=== PATIENT | male | born 1970 | race Caucasian/White ===

== ENCOUNTER 2024-10-16 12:05 | Observation (INO) ==
[2024-10-16 12:33] LABS: Basophils % (auto) 1.3 %; Eosinophils # (auto) 0.43 K/uL (0.00-0.50); Eosinophils % (auto) 5.6 %; Hematocrit (blood only) 51.6 % (42.0-52.0); Hemoglobin 17.8 g/dl (14.0-18.0); Immature Granulocytes # (auto) 0.02 K/uL (0.01-0.20); Immature Granulocytes % (auto) 0.3 %; Lymphocytes # (auto) 3.03 K/uL (1.20-3.40); Lymphocytes % (auto) 39.6 %; Mean Corpuscular Hemoglobin 28.8 pg (25.0-34.0); Mean Corpuscular Hgb Conc 34.5 g/dL (32.0-36.0); Mean Corpuscular Volume 83.4 fL (80.0-100.0); Mean Platelet Volume 9.7 fL (9.4-12.4); Monocytes # (auto) 0.73 K/uL (0.11-0.59); Monocytes % (auto) 9.5 %; Neutrophils # (auto) 3.34 K/uL (1.40-6.50); Neutrophils % (auto) 43.7 %; Platelet Count 236 K/uL (130-400); RDW Coefficient of Variation 12.8 % (11.5-14.5); Red Blood Count 6.19 M/uL (4.70-6.10); White Blood Count 7.65 K/ul (4.8-10.8)
[2024-10-16 12:50] LABS: Alanine Aminotransferase 49 U/L (7-52); Albumin Globulin Ratio 1.8 (0.9-2); Alkaline Phosphatase 57 U/L (34-104); Anion Gap 6 (3-11); Aspartate Aminotransferase 29 U/L (13-39); BUN Creatinine Ratio 13.8 (10-20); Bilirubin,Total 0.8 mg/dl (0.2-1.0); Blood Urea Nitrogen 15 mg/dl (6-23); Calcium 9.8 mg/dl (8.6-10.3); Carbon Dioxide 28 mmol/L (21-32); Chloride 104 mmol/L (98-107); Creatinine Clr Calc Pharmacy 99.9 ml/min; Globulin 2.8 gm/dl (2.5-4.0); Glucose 106 mg/dl (70-99(Fasting)); Potassium 4.2 mmol/L (3.5-5.1); Sodium 138 mmol/L (136-145); Total Protein 7.8 gm/dl (6.0-8.3)
[2024-10-16 12:56] LABS: Troponin I High Sensitivity < 2.3 pg/ml (0-20)
[2024-10-16 13:01] LABS: Partial Thromboplastin Time 26 Seconds (21-31); Prothrombin Time 10.9 Seconds (9.0-12.0)
[2024-10-16 13:03] LABS: Influenza A virus by PCR Negative (Neg); Influenza B virus by PCR Negative (Neg); RSV by PCR Negative (Neg); SARS CoV2 RNA(COVID-19) Ceph NEGATIVE (Negative)
--- NOTE | 2024-10-16 13:33 | XRay Report ---
XR chest 1V not portable CLINICAL HISTORY: Chest pain, nonspecific COMPARISON STUDY: None FINDINGS: Heart size and pulmonary vasculature are normal. There is a pulmonary granuloma lateral rig ht lung base. No consolidation or pleural effusion. No pneumothorax. IMPRESSION: No acute findings. ACT 112: Negative or not required by law. Electronically signed by: Joe Madden M.D. 10/16/2024 1:32 PM
[2024-10-16] MEDS: ASPIRIN 81 MG CHEW PO STA (14:53)
--- NOTE | 2024-10-16 15:01 | History & Physical Report ---
Date of Service October 16, 2024 Assessment & Plan (1) Exertional dyspnea: (2) Family history of cardiac arrest: Plan This is a 54 y/o male with no significant medical history who presented to the ED today with dyspnea on exertion since yesterday. Work-up in the ED revealed a negative troponin at <2.3. EKG personally reviewed and without evidence of ischemia. Chest x-ray personally reviewed and without acute disease. Due to his family history and concerning symptoms, pt was referred for observation and further work-up. #Exertional dyspnea #Family history of cardiac disease - Observe on med telemetry - Trend troponin, repeat EKG if develops recurrent symptoms/chest pain - ECHO - Pending results of above work-up will evaluate need for inpatient cardiology evaluation vs. outpatient work-up - Lipid panel and A1c in the AM - Chest xray shows pulmonary granuloma - will check CTA chest to r/o PE and better evaluate granuloma Pt seen and reviewed with collaborating physician, Dr. Hamilton. Plan of care discussed and as above. Code status: full code DVT prophylaxis: SCDs I spent a total of 62 minutes coordinating, documenting, and providing care for this patient excluding time spend in the performance of separately billed services or time spent by another provider/QHP. Ganesh Johnson PA-C History of Present Illness Chief Complaint: exertional dyspnea Primary Care Provider: NO PCP This is a 54 y/o male with no significant medical history who presented to the ED today with dyspnea on exertion since yesterday. He reports he was he was working in the yard yesterday and became more short of breath than he would usually expect for his level of exertion and became very tired. He tried stopping to rest, and the breathing improved somewhat so he attempted to do work again but the same symptoms happened so he stopped. He tried resting overnight to see if symptoms would resolve but reports that he felt off again today, specifically still with persistent fatigue so he came to the ED for evaluation. He notes a family history of cardiac disease with his mother having HOCM and his father having a cardiac arrest a few years ago. He denies prior personal history of cardiac disease. He does have a history of vertigo that started a year ago - has this off and on since started but his current symptoms don't quite feel the same as when he has vertigo. He denies chest pain, nausea, vomiting, MÁRQUEZ, cold symptoms, fevers, chills, abd pain, diarrhea, constipation. Allergies Allergy/AdvReac Type Severity Reaction Status Date / Time Penicillins Allergy Unknown hives Unverified 10/16/24 15:03 epoxy resin Allergy Swelling Verified 10/16/24 15:03 of the Eye Home Medications Medication Instructions Recorded Confirmed Type No Known Home Medications 10/16/24 10/16/24 History Past Med/Surg History Problem List (Updated 10/16/24 @ 18:51 by Jazmyn Johnson PA-C) Family history of cardiac arrest Exertional dyspnea (Acute) Medical History Vertigo AC joint dislocation Surgical History No significant past surgical history Family History Mother HOCM (hypertrophic obstructive cardiomyopathy) Father Cardiac arrest Diabetes Social History Smoking Status: Never smoker Second Hand Exposure: No; Do You Dip or Chew Tobacco: No; Hx Alcohol Use: Yes Alcohol type: beer and hard liquor Hx Substance Use: No Beliefs That Will Affect Care: None marital status: Current Living Situation: Family current occupational status: employed Feels Safe at Home: Yes Safety Concerns: Feels Safe At This Time Assistive Devices: None, Contacts, Glasses and Other Review of Systems Review of Systems: All systems reviewed & are unremarkable except as noted in Subjective Physical Exam Physical Exam: Please see physician note for details of the physical exam Results & Data Results & Data Vital Signs (Past 12 Hours) Vital Signs Temp Pulse Pulse Resp BP BP Pulse Ox 10/16/24 14:27 95 10/16/24 14:27 95 10/16/24 14:25 70 10/16/24 14:00 71 18 148/95 H 95 10/16/24 14:00 95 10/16/24 12:08 36.7 C 88 18 177/106 H 95 O2 Del Method 10/16/24 14:27 10/16/24 14:27 Room Air 10/16/24 14:25 10/16/24 14:00 Room Air 10/16/24 14:00 Room Air 10/16/24 12:08 Room Air Laboratory Results Lab Results 10/16/24 Range/Units 12:13 WBC 7.65 (4.8-10.8) K/ul RBC 6.19 H (4.70-6.10) M/uL Hgb 17.8 (14.0-18.0) g/dl Hct 51.6 (42.0-52.0) % MCV 83.4 (80.0-100.0) fL MCH 28.8 (25.0-34.0) pg MCHC 34.5 (32.0-36.0) g/dL RDW Std Deviation 38.0 (36.4-46.3) fL RDW Coeff of Vargas 12.8 (11.5-14.5) % Plt Count 236 (130-400) K/uL MPV 9.7 (9.4-12.4) fL Immature Gran % (Auto) 0.3 % Neut % (Auto) 43.7 % Lymph % (Auto) 39.6 % [place] % (Auto) 9.5 % Eos % (Auto) 5.6 % Baso % (Auto) 1.3 % Neut # (Auto) 3.34 (1.40-6.50) K/uL Lymph # (Auto) 3.03 (1.20-3.40) K/uL [place] # (Auto) 0.73 H (0.11-0.59) K/uL Eos # (Auto) 0.43 (0.00-0.50) K/uL Baso # (Auto) 0.10 (0.00-0.20) K/uL Immature Gran # (Auto) 0.02 (0.01-0.20) K/uL PT 10.9 (9.0-12.0) Seconds INR 1.0 (0.9-1.1) APTT 26 (21-31) Seconds PTT Ratio 1.0 Sodium 138 (136-145) mmol/L Potassium 4.2 (3.5-5.1) mmol/L Chloride 104 (98-107) mmol/L Carbon Dioxide 28 (21-32) mmol/L Anion Gap 6 (3-11) BUN 15 (6-23) mg/dl Creatinine 1.09 (0.6-1.4) mg/dl Est Cr Clr Drug Dosing 99.9 ml/min eGFR 80.65 BUN/Creatinine Ratio 13.8 (10-20) Glucose 106 H (70-99(Fasting)) mg/dl Calcium 9.8 (8.6-10.3) mg/dl Total Bilirubin 0.8 (0.2-1.0) mg/dl AST 29 (13-39) U/L ALT 49 (7-52) U/L Alkaline Phosphatase 57 (34-104) U/L Troponin I High Sens < 2.3 (0-20) pg/ml Total Protein 7.8 (6.0-8.3) gm/dl Albumin 5.0 (3.4-5.0) gm/dl Globulin 2.8 (2.5-4.0) gm/dl Albumin/Globulin Ratio 1.8 (0.9-2) SARS-CoV-2 (PCR) NEGATIVE (Negative) Influenza Type A (PCR) Negative (Neg) Influenza Type B (PCR) Negative (Neg) RSV (RT-PCR) Negative (Neg) Diagnostic Findings Chest X-Ray 10/16/24 12:11 XR chest 1V not portable CLINICAL HISTORY: Chest pain, nonspecific COMPARISON STUDY: None FINDINGS: Heart size and pulmonary vasculature are normal. There is a pulmonary granuloma lateral right lung base. No consolidation or pleural effusion. No pneumothorax. IMPRESSION: No acute findings. ACT 112: Negative or not required by law. Electronically signed by: Joe Madden M.D. 10/16/2024 1:32 PM Medications Administered Discontinued Medications Aspirin (Aspirin 81 Mg Chew) 324 mg PO NOW STA Stop: 10/16/24 14:31 Last Admin: 10/16/24 14:53 Dose: 324 mg Documented By: [facility] Supervising Physician Co-Signing Physician Notes Presents with complaint of exertional dyspnea with working in the yard yesterday which is unusual for him and feeling fatigue Denied chest pain ROS noted for vertigo, mild couhg Reports family history of HOCM in mother and cardiac arrest in father General: Not in resp distress, obese Eyes: PERRL, conjunctivae normal, not pale, anicteric sclerae, EOM intact bilaterally ENMT: External ear and nose normal, oropharynx normal Respiratory: Normal respiratory effort, no respiratory distress, lungs clear to auscultation, no crackles and no wheezes Cardiovascular: RRR S1 S2 Gastrointestinal (Abdomen): Abdomen is not distended, soft, non-tender to palpation, no guarding, no palpable hepatosplenomegaly, normal bowel sounds Musculoskeletal: No pedal edema Neurologic: Alert and oriented x 3, No focal weakness, sensation grossly intact Psychiatric: Euthymic affect Labs drawn unremarkable. Troponin is normal. Chest x-ray did not show any acute abnormality but noted pulmonary granuloma Considering symptoms, family history, Overnight for telemetry monitoring, trending troponin and getting an echocardiogram. If abnormalities noted then consult cardiology Get CT to rule out PE and better assess CXR findings Other plans as detailed by Halie Johnson PA-C I spent a total of 30 minutes coordinating, documenting and providing care for this patient excluding time spent in performance of separately billed services
--- NOTE | 2024-10-16 16:16 | Emergency Department Note ---
History of Present Illness General Chief Complaint: Shortness of Breath/Dyspnea Stated Complaint: SOB, FATIGUE Time Seen by Provider: 10/16/24 13:58 History of Present Illness Provider Complaint: shortness of breath Onset (ago): day(s) (2) Current Pain Intensity: 0 Exacerbated By: + exertion (While doing yard work) Associated symptoms: no chest pain, no fever, no cough, no wheezing, no sputum production, no orthopnea, no paresthesias, no hemoptysis, no nausea/vomiting, no abdominal pain or no rash Home Medications Medication Instructions Recorded Confirmed Type No Known Home Medications 10/16/24 10/16/24 History Allergies Allergy/AdvReac Type Severity Reaction Status Date / Time Penicillins Allergy Unknown hives Unverified 10/16/24 15:03 epoxy resin Allergy Swelling Verified 10/16/24 15:03 of the Eye Past Med/Surg History Problem List (Updated 10/16/24 @ 16:24 by Walker Enriquez MD) Exertional dyspnea (Acute) Medical History Vertigo AC joint dislocation Surgical History No significant past surgical history Family History Mother HOCM (hypertrophic obstructive cardiomyopathy) Father Cardiac arrest Diabetes Social History Smoking Status: Never smoker Hx Alcohol Use: Yes marital status: Current Living Situation: Spouse and Family current occupational status: employed Feels Safe at Home: Yes Physical Exam 2 Vital Signs: Vital Signs - 24 hr 10/16/24 12:08 10/16/24 14:00 10/16/24 14:00 Temperature 36.7 C Temperature Source Temporal Artery Sc an Pulse Rate 88 Pulse Rate [Apical ] 71 Pulse Rhythm [Apic al] Pulse Strength [Ap ical] Respiratory Rate 18 18 Respiratory Effort / Characteristics Non-Labored Non-Labored Sponta neous Respiratory Depth Normal Normal Respiratory Patter n Regular Regular Blood Pressure 177/106 H Blood Pressure [Le ft Arm] 148/95 H Blood Pressure Becca n 129 Blood Pressure Becca n [Left Arm] 112 Blood Pressure Pos ition [Left Arm] Pulse Oximetry 95 95 95 Oxygen Delivery Me thod Room Air Room Air Room Air Sepsis Recent Feve r Within 48 Hours No Sepsis New/Unexpla ined Change in Men margi Status N/A Sepsis Action Take n by Nursing No Action Required 10/16/24 14:00 10/16/24 14:25 10/16/24 14:27 Temperature Temperature Source Pulse Rate 70 Pulse Rate [Apical ] Pulse Rhythm [Apic al] Pulse Strength [Ap ical] Respiratory Rate Respiratory Effort / Characteristics Spontaneous Respiratory Depth Normal Respiratory Patter n Regular Blood Pressure Blood Pressure [Le ft Arm] Blood Pressure Becca n Blood Pressure Becca n [Left Arm] Blood Pressure Pos ition [Left Arm] Pulse Oximetry 95 Oxygen Delivery Me thod Room Air Sepsis Recent Feve r Within 48 Hours Sepsis New/Unexpla ined Change in Men margi Status Sepsis Action Take n by Nursing 10/16/24 14:27 10/16/24 15:58 Temperature Temperature Source Pulse Rate Pulse Rate [Apical ] 68 Pulse Rhythm [Apic al] Regular Pulse Strength [Ap ical] Normal Respiratory Rate 19 Respiratory Effort / Characteristics Non-Labored Respiratory Depth Normal Respiratory Patter n Regular Blood Pressure Blood Pressure [Le ft Arm] 135/94 Blood Pressure Becca n Blood Pressure Becca n [Left Arm] 107 Blood Pressure Pos ition [Left Arm] Lying Pulse Oximetry 95 95 Oxygen Delivery Me thod Room Air Sepsis Recent Feve r Within 48 Hours Sepsis New/Unexpla ined Change in Men margi Status Sepsis Action Take n by Nursing Physical Exam: Physical Exam GENERAL: oriented to person, place, and time. appears well-developed and well- nourished. HENT: Exam performed. - Head: Normocephalic and atraumatic. EYES: Conjunctivae and EOM are normal. Right eye exhibits no discharge. Left eye exhibits no discharge. No scleral icterus. NECK: Normal range of motion. Neck supple. No JVD present. CV: Normal rate, regular rhythm, normal heart sounds and intact distal pulses. There is no peripheral edema. Palpable radial pulses bue. PULM/CHEST: Effort normal and breath sounds normal. No respiratory distress. No stridor. no wheezes. no rales. ABD: The abdomen is soft. There is no tenderness. NEURO: Motor and sensation grossly intact. SKIN: Skin is warm and dry. He is not diaphoretic. PSYCH: normal mood and affect. Behavior is normal. Judgment and thought content normal. Course Course 1358: The patient was evaluated in room A12. A complete history and physical exam was performed Administered Medications Discontinued Medications Aspirin (Aspirin 81 Mg Chew) 324 mg PO NOW STA Stop: 10/16/24 14:31 Last Admin: 10/16/24 14:53 Dose: 324 mg Documented By: [facility] Medical Decision Making Laboratory Data Attestation: I reviewed the patient's lab results. 10/16/24 12:13 10/16/24 12:13 Lab Results 10/16/24 Range/Units 12:13 WBC 7.65 (4.8-10.8) K/ul RBC 6.19 H (4.70-6.10) M/uL Hgb 17.8 (14.0-18.0) g/dl Hct 51.6 (42.0-52.0) % MCV 83.4 (80.0-100.0) fL MCH 28.8 (25.0-34.0) pg MCHC 34.5 (32.0-36.0) g/dL RDW Std Deviation 38.0 (36.4-46.3) fL RDW Coeff of Vargas 12.8 (11.5-14.5) % Plt Count 236 (130-400) K/uL MPV 9.7 (9.4-12.4) fL Immature Gran % (Auto) 0.3 % Neut % (Auto) 43.7 % Lymph % (Auto) 39.6 % [place] % (Auto) 9.5 % Eos % (Auto) 5.6 % Baso % (Auto) 1.3 % Neut # (Auto) 3.34 (1.40-6.50) K/uL Lymph # (Auto) 3.03 (1.20-3.40) K/uL [place] # (Auto) 0.73 H (0.11-0.59) K/uL Eos # (Auto) 0.43 (0.00-0.50) K/uL Baso # (Auto) 0.10 (0.00-0.20) K/uL Immature Gran # (Auto) 0.02 (0.01-0.20) K/uL PT 10.9 (9.0-12.0) Seconds INR 1.0 (0.9-1.1) APTT 26 (21-31) Seconds PTT Ratio 1.0 Sodium 138 (136-145) mmol/L Potassium 4.2 (3.5-5.1) mmol/L Chloride 104 (98-107) mmol/L Carbon Dioxide 28 (21-32) mmol/L Anion Gap 6 (3-11) BUN 15 (6-23) mg/dl Creatinine 1.09 (0.6-1.4) mg/dl Est Cr Clr Drug Dosing 99.9 ml/min eGFR 80.65 BUN/Creatinine Ratio 13.8 (10-20) Glucose 106 H (70-99(Fasting)) mg/dl Calcium 9.8 (8.6-10.3) mg/dl Total Bilirubin 0.8 (0.2-1.0) mg/dl AST 29 (13-39) U/L ALT 49 (7-52) U/L Alkaline Phosphatase 57 (34-104) U/L Troponin I High Sens < 2.3 (0-20) pg/ml Total Protein 7.8 (6.0-8.3) gm/dl Albumin 5.0 (3.4-5.0) gm/dl Globulin 2.8 (2.5-4.0) gm/dl Albumin/Globulin Ratio 1.8 (0.9-2) SARS-CoV-2 (PCR) NEGATIVE (Negative) Influenza Type A (PCR) Negative (Neg) Influenza Type B (PCR) Negative (Neg) RSV (RT-PCR) Negative (Neg) Imaging Data Attestation: I personally reviewed and interpreted this imaging study as follows: My Impression: Chest x-ray negative. Airway clear. No pneumothorax. No consolidation. No cardiomegaly or cephalization.. No free air under the diaphragm. No fractures of the skeletal structures. Radiologist's Impression: Chest X-Ray 10/16/24 12:11 XR chest 1V not portable CLINICAL HISTORY: Chest pain, nonspecific COMPARISON STUDY: None FINDINGS: Heart size and pulmonary vasculature are normal. There is a pulmonary granuloma lateral right lung base. No consolidation or pleural effusion. No pneumothorax. IMPRESSION: No acute findings. ACT 112: Negative or not required by law. Electronically signed by: Joe Madden M.D. 10/16/2024 1:32 PM ECG Data Attestation: I personally reviewed and interpreted this ECG as follows: Interpretation: Sinus rhythm with a rate of 83. OK QRS and QTc intervals within normal limits. No ST elevation or ST depression. MDM Narrative Cardiac monitoring: An order was placed for continuous cardiac monitoring. The monitor shows a rate of 80 with sinus rhythm interpreted by me Patient was seen during a time of extreme volume and extreme acuity. Nursing triage protocols were initiated labs and imaging was conducted by protocol in the triage area. Labs and imaging are unremarkable. Given the patient's history of exertional dyspnea, family history of HOCM, obesity we will admit the patient for rule out ACS. Impression & Plan Exertional dyspnea Discharge Plan Visit Data Chief Complaint: Shortness of Breath/Dyspnea Stated Complaint: SOB, FATIGUE ED Provider: Walker Enriquez Discharge Problem: Exertional dyspnea Patient Disposition: Being Evaluated by Hospitalist Condition: Good Discharge Instructions Interventions: ED Discharge Assessment Last Done: 10/16/24 16:07 Forms Stand Alone Forms: [employer] Prescriptions Prescriptions: No Action No Known Home Medications Referrals Referrals: PCP,NO [Primary Care Provider] -
[2024-10-16] MEDS ORDERED: ACETAMINOPHEN 325 MG TAB PO PRN (16:28)
[2024-10-16] MEDS ORDERED: NITROGLYCERIN SL 0.4 MG/TAB TAB SL PRN (16:28)
[2024-10-16] MEDS: OPTIRAY 320 125ml IV ONE (22:50)
--- NOTE | 2024-10-17 01:58 | CT Scan Report ---
Exam(s): CTA CHEST IV Amt: 118 ml optiray 320 EXAM: CT Angiography Chest With Intravenous Contrast CLINICAL HISTORY: Reason for exam: r/o PE, asses pulm granuloma seen on CXR. TECHNIQUE: Axial computed tomographic angiography images of the chest with intravenous contrast. CTDI is 28.14 mGy and DLP is 873.63 mGy-cm. Automated exposure control was utilized for the study. A dose lowering technique was utilized adhering to the principles of ALARA. MIP reconstructed images were created and reviewed. COMPARISON: No relevant prior studies available. FINDINGS: Pulmonary arteries: No pulmonary embolism is seen. Aorta: No thoracic aortic aneurysm or dissection. Lungs: There are calcifications noted in the right lung. There are some mild dependent atelectasis. Pleural space: No significant effusion. No pneumothorax. Heart: The heart is top normal in size.. Bones/joints: There are degenerative changes in the spine.. Soft tissues: Unremarkable. Lymph nodes: There are calcified lymph nodes.. IMPRESSION: No pulmonary embolism is seen. There is evidence for old granulomatous disease. Electronically signed by: Slick Wolf MD 10/17/24 01:58 AM
[2024-10-17 06:43] LABS: Chol HDL Ratio 6.6 (0-5)
[2024-10-17 07:24] VITALS: O2SAT 94
[2024-10-17 07:24] LABS: Estimated Average Glucose 108 mg/dl; Hemoglobin A1C 5.4 % (4.5-5.6)
--- NOTE | 2024-10-17 11:00 | Hospitalist Progress Note ---
Date of Service October 17, 2024 Assessment & Plan (1) Exertional dyspnea: (2) Family history of cardiac arrest: Plan This is a 54 y/o male with no significant medical history who presented to the ED today with dyspnea on exertion since yesterday. Work-up in the ED revealed a negative troponin at <2.3. EKG personally reviewed and without evidence of ischemia. Chest x-ray personally reviewed and without acute disease. Due to his family history and concerning symptoms, pt was referred for observation and further work-up. #Exertional dyspnea #Family history of cardiac disease Remains free from any symptoms at rest and does not have any chest pain, p alpitation or shortness of breath EKG and serial troponins are unremarkable for any ACS - ECHO- pending results - Lipid panel and A1c in the AM- triglyceride mildly elevated at 174 and cholesterol elevated to 224 with HDL 34 and hemoglobin A1c is 5.4 - Chest xray shows pulmonary granuloma - will check CTA chest to r/o PE and better evaluate granuloma -CTA did show old granulomatous disease likely the cause for exertional dyspnea echo of the heart showed; LV systolic function is normal with EF 55 to 60%, there is mild concentric LVH, LV wall motion is normal, LV relaxation is normal and no significant valvular pathology Discussed with the patient in detail about the findings and he wanted to go home He will be scheduled with a new [facility] patient PCP and also stress test and an outpatient Pt seen and reviewed with collaborating physician, Dr. Hamilton. Plan of care discussed and as above. Code status: full code DVT prophylaxis: SCDs Admission and Anticipated Discharge Date Admission Date: October 16, 2024 Subjective 10/17/2024 The patient was seen and examined in medical telemetry unit He was admitted with exertional dyspnea without any chest pain or palpitation Has been free from any symptoms since admission Denies any history of asthma and/or COPD Wants to go home if no further testing is needed Review of Systems Review of Systems: All systems reviewed and are unremarkable except as noted below Physical Exam Constitutional: well developed, well nourished and + obese; not ill appearing Eyes: PERRL, conjunctivae normal, anicteric sclerae ENMT: external ear and nose normal, oropharynx normal Neck: trachea midline, no thyromegaly Respiratory: no respiratory distress Auscultation: lungs clear to auscultation bilaterally Cardiovascular: Rate/Rhythm: regular rate and regular rhythm; not tachycardic Heart Sounds: normal S1 and normal S2; no murmur Extremities: no edema Gastrointestinal (Abdomen): Inspection/Auscultation: normal bowel sounds; abdomen not distended Percussion/Palpation: abdomen soft; abdomen nontender Musculoskeletal: No acute arthritis involving any of the joint Neurologic: normal touch/pain/proprioception and moves all extremities; no focal motor deficits Lymphatic: no cervical or axillary lymphadenopathy Results & Data Results & Data Vital Signs (Past 12 Hours) Vital Signs Temp Pulse Pulse Resp BP Pulse Ox O2 Del Method 10/17/24 07:41 58 L 10/17/24 07:22 36.4 C L 64 14 142/89 H 94 Room Air 10/17/24 03:48 36.3 C L 64 20 137/88 97 Room Air 10/17/24 00:24 36.6 C 78 20 154/96 H 95 Room Air Laboratory Results Short CBC 10/16/24 Range/Units 12:13 WBC 7.65 (4.8-10.8) K/ul Hgb 17.8 (14.0-18.0) g/dl Hct 51.6 (42.0-52.0) % Plt Count 236 (130-400) K/uL BMP 10/16/24 12:13 Sodium 138 Potassium 4.2 Chloride 104 Carbon Dioxide 28 BUN 15 Creatinine 1.09 Glucose 106 H Calcium 9.8 Liver Function 10/16/24 Range/Units 12:13 Total Bilirubin 0.8 (0.2-1.0) mg/dl AST 29 (13-39) U/L ALT 49 (7-52) U/L Alkaline Phosphatase 57 (34-104) U/L Albumin 5.0 (3.4-5.0) gm/dl Medications Administered Current Inpatient Medications Acetaminophen (Acetaminophen 325 Mg Tab) 650 mg PO Q4H PRN PRN Reason: Pain or Fever Stop: 11/15/24 16:27 Nitroglycerin (Nitroglycerin Sl 0.4 Mg/Tab Tab) 0.4 mg SL Q5M PRN PRN Reason: Chest Pain Stop: 11/15/24 16:27
[2024-10-17 11:55] VITALS: BP 147/88; PULSE 70; RESP 18; TEMP 97.9
--- NOTE | 2024-10-17 12:34 | Electrocardiogram Report ---
Test Reason : Blood Pressure : */* mmHG Vent. Rate : 83 BPM Atrial Rate : 83 BPM P-R Int : 150 ms QRS Dur : 88 ms QT Int : 362 ms P-R-T Axes : 51 -4 24 degrees QTcB Int : 425 ms Normal sinus rhythm Normal ECG No previous ECGs available Confirmed by Ari Mendoza ([id number]) on 10/17/2024 12:33:46 PM Referred By: Confirmed By: Ari Mendoza
--- NOTE | 2024-10-17 13:13 | Electrocardiogram Report ---
Test Reason : Blood Pressure : */* mmHG Vent. Rate : 61 BPM Atrial Rate : 61 BPM P-R Int : 156 ms QRS Dur : 96 ms QT Int : 410 ms P-R-T Axes : 45 11 20 degrees QTcB Int : 412 ms Normal sinus rhythm Normal ECG When compared with ECG of 16-Oct-2024 12:15, (unconfirmed) No significant change was found Confirmed by Ari Mendoza ([id number]) on 10/17/2024 1:12:57 PM Referred By: REFERRED SELF Confirmed By: Ari Mendoza
--- NOTE | 2024-10-17 15:26 | Discharge Summary ---
Date of Service October 17, 2024 Admission HPI Per Admitting Provider This is a 54 y/o male with no significant medical history who presented to the ED today with dyspnea on exertion since yesterday. He reports he was he was working in the yard yesterday and became more short of breath than he would usually expect for his level of exertion and became very tired. He tried stopping to rest, and the breathing improved somewhat so he attempted to do work again but the same symptoms happened so he stopped. He tried resting overnight to see if symptoms would resolve but reports that he felt off again today, specifically still with persistent fatigue so he came to the ED for evaluation. He notes a family history of cardiac disease with his mother having HOCM and his father having a cardiac arrest a few years ago. He denies prior personal history of cardiac disease. He does have a history of vertigo that started a year ago - has this off and on since started but his current symptoms don't quite feel the same as when he has vertigo. He denies chest pain, nausea, vomiting, MÁRQUEZ, cold s ymptoms, fevers, chills, abd pain, diarrhea, constipation. Admission Exam Per Admitting Provider General: Not in resp distress, obese Eyes: PERRL, conjunctivae normal, not pale, anicteric sclerae, EOM intact bilaterally ENMT: External ear and nose normal, oropharynx normal Respiratory: Normal respiratory effort, no respiratory distress, lungs clear to auscultation, no crackles and no wheezes Cardiovascular: RRR S1 S2 Gastrointestinal (Abdomen): Abdomen is not distended, soft, non-tender to palpation, no guarding, no palpable hepatosplenomegaly, normal bowel sounds Musculoskeletal: No pedal edema Neurologic: Alert and oriented x 3, No focal weakness, sensation grossly intact Psychiatric: Euthymic affect Principal Diagnosis Exertional shortness of breath, no ACS, Discharge Exam Constitutional well developed, well nourished and + obese; not ill appearing Eyes PERRL, conjunctivae normal, anicteric sclerae ENMT external ear and nose normal, oropharynx normal Neck trachea midline, no thyromegaly Respiratory no respiratory distress Auscultation: lungs clear to auscultation bilaterally Cardiovascular Rate/Rhythm: regular rate and regular rhythm; not tachycardic Heart Sounds: normal S1 and normal S2; no murmur Extremities: no edema Gastrointestinal (Abdomen) Inspection/Auscultation: normal bowel sounds; abdomen not distended Percussion/Palpation: abdomen soft; abdomen nontender Neurologic normal touch/pain/proprioception and moves all extremities; no focal motor def icits Lymphatic no cervical or axillary lymphadenopathy Discharge Data Allergies Allergy/AdvReac Type Severity Reaction Status Date / Time Penicillins Allergy Unknown hives Unverified 10/16/24 15:03 epoxy resin Allergy Swelling Verified 10/16/24 15:03 of the Eye Consultations 10/16/24 14:31 ED Decision to Admit Stat Ordered Studies 10/16/24 19:02 CT angio chest PE protocol Urgent Hospital Course (1) Exertional dyspnea: (2) Family history of cardiac arrest: Plan This is a 54 y/o male with no significant medical history who presented to the ED today with dyspnea on exertion since yesterday. Work-up in the ED revealed a negative troponin at <2.3. EKG personally reviewed and without evidence of ischemia. Chest x-ray personally reviewed and without acute disease. Due to his family history and concerning symptoms, pt was referred for observation and further work-up. #Exertional dyspnea #Family history of cardiac disease Remains free from any symptoms at rest and does not have any chest pain, palpitation or shortness of breath EKG and serial troponins are unremarkable for any ACS - ECHO- pending results - Lipid panel and A1c in the AM- triglyceride mildly elevated at 174 and cholesterol elevated to 224 with HDL 34 and hemoglobin A1c is 5.4 - Chest xray shows pulmonary granuloma - will check CTA chest to r/o PE and better evaluate granuloma -CTA did show old granulomatous disease likely the cause for exertional dyspnea echo of the heart showed; LV systolic function is normal with EF 55 to 60%, there is mild concentric LVH, LV wall motion is normal, LV relaxation is normal and no significant valvular pathology Discussed with the patient in detail about the findings and he wanted to go home He will be scheduled with a new [facility] patient PCP and also stress test and an outpatient Pt seen and reviewed with collaborating physician, Dr. Hamilton. Plan of care discussed and as above. Code status: full code DVT prophylaxis: SCDs Total Time Total Time Spent Total Time Spent (In Minutes): 35 Minutes Discharge Plan Discharge Items Patient Disposition: Home - Self-Care Reason For Visit: EXERTIONAL DYSPNEA Discharge Diagnosis: Exertional shortness of breath, no ACS, Condition on Discharge: Good Activity: Resume your previous activity Non-emergency contact: Primary Care Provider Call non-emergency contact if: you have any medication questions and your symptoms worsen Follow-up/Referrals: Edenilson Alston MD [Outside Practitioners] - (Date & Time 10/25/2024 6:00 PM Provider: Edenilson Alston MD Department Family Practice [facility] ) Diet: Regular Addtl Attending Provider Instructions: Please take precautions to avoid falls Use your inhalers as advised Please keep appointments with the healthcare providers You will need to have a stress test for your heart as an outpatient through your PCP and also Referral to a inspector aide for the old granulomatous disease in chest Pending Studies at Discharge: No Stand-Alone Forms: My [employer], Smoking Cessation Medications and DC Order Prescriptions: New albuterol sulfate 90 mcg/actuation HFA aerosol inhaler 2 inh inhalation Q8H PRN (Reason: shortness of breath or wheezing) Qty: 8.5 0RF Discharge Orders: Discharge Order (Routine); Ordered 10/17/24 Ordered By: Tr Knox Admission Data Admit Date/Time: 10/16/24 15:05 Attending Provider: Tr Knox Admit Provider: Unique Hamilton I. Primary Care Provider: PCP,NO Other Providers: Unique Hamilton I. Other Interventions: Discharge Summary Assessment (RN) Last Done: 10/17/24 13:48
== END 2024-10-17 14:45 | disposition home or self-care (01) ==
LOC: 2N 12:05 → ED 12:05 → SUATTDRO 15:05 → 2N 16:07